=== PATIENT | female | born 1990 | race Caucasian/White ===

== ENCOUNTER → 2021-03-20 | Outpatient (CLI) | payer BC ==
[~2021-03-20] VITALS: Ht 165.1 cm; Wt 62.4 kg
[~2021-03-20] MED LIST: ULTRAM 50MG TAB50 MG PO
[2021-03-20 13:26] VITALS: BP 128/79; PULSE 77
[2021-03-20 14:05] VITALS: BP 133/87; PULSE 78
== END ==
LOC: COL.RAD 13:00
DX: M54.5 Low back pain (principal); M25.551 Pain in right hip; M25.552 Pain in left hip
CPT/HCPCS: J3301

== ENCOUNTER → 2021-05-06 | Outpatient (CLI) | payer BC | LOC: MHCPAIN 13:03 | DX: M47.817 Spondylosis without myelopathy or radiculopathy, lumbosacral region (principal); M54.5 Low back pain; M53.3 Sacrococcygeal disorders, not elsewhere classified; M51.36 Other intervertebral disc degeneration, lumbar region | CPT/HCPCS: G0463 ==

== ENCOUNTER → 2021-05-21 | Outpatient (CLI) | payer BC | LOC: MHCPAIN 13:56 | DX: M47.816 Spondylosis without myelopathy or radiculopathy, lumbar region (principal); M54.5 Low back pain; M53.3 Sacrococcygeal disorders, not elsewhere classified | CPT/HCPCS: J0690; J2250; J3010; Q9967 ==